=== PATIENT | male | born 1975 | race Caucasian/White ===

== ENCOUNTER 2023-12-02 12:43 | Emergency (ER) | payer OTHER ==
--- NOTE | 2023-12-02 12:47 | ERPHSYRPT ---
- History of Present Illness Time Seen by Provider: 12/02/23 12:47 Historian: patient Exam Limitations: no limitations Physician History: This is an overweight 48-year-old white male patient who for the last 2 days has noticed worsening right flank pain that radiates into his right groin area. Patient has a history of ureterolithiasis in the past. He states this feels the same. Patient has a history of hypertension and diabetes. Patient has also been diagnosed with leukemia and is currently on chemotherapy. Patient took Advil this morning about 4 AM without much relief. He has not noticed any hematuria. He denies chest pain and he denies shortness of breath. The Timing/Duration: day(s) (2), worse (Today) Quality: aching, stabbing Abdominal Pain Onset Location: flank (Right) Pain Radiation: RLQ, groin (Right side) Severity of Pain-Max: moderate Severity of Pain-Current: moderate Modifying Factors: Improves With: nothing Associated Symptoms: denies symptoms Previous symptoms: same symptoms as today, no recent treatment Allergies/Adverse Reactions: Penicillins Allergy (Verified 12/02/23 13:05) Home Medications: Acalabrutinib Maleate [Calquence] 100 mg PO BID 12/02/23 [History] Amlodipine Besylate 10 mg PO DAILY 12/02/23 [History] Cetirizine HCl 10 mg PO DAILY 12/02/23 [History] Empagliflozin [Jardiance] 10 mg PO DAILY 12/02/23 [History] Semaglutide [Ozempic] 1 mg SQ WEEKLY 12/02/23 [History] Travel Risk - International Travel Have you traveled outside of the country in past 3 weeks: No - Emerging Infectious Disease Are you exhibiting symptoms associated with any current EIDs: No - Vaccine Status Hx Covid Vaccintation/Booster/Date Given: No - Review of Systems Constitutional: No Symptoms Eyes: No Symptoms Ears, Nose, & Throat: No Symptoms Respiratory: No Symptoms Cardiac: No Symptoms Abdominal/Gastrointestinal: No Symptoms Genitourinary Symptoms: Flank Pain (Right) Musculoskeletal: No Symptoms Skin: No Symptoms Neurological: No Symptoms Psychological: No Symptoms Endocrine: No Symptoms Hematologic/Lymphatic: No Symptoms Immunological/Allergic: No Symptoms All Other Systems: Reviewed and Negative - Past Medical History Pertinent Past Medical History: Yes - Nursing Vital Signs Nursing Vital Signs: Initial Vital Signs Temperature 98.3 F 12/02/23 12:51 Pulse Rate 81 12/02/23 12:51 Blood Pressure 144/98 12/02/23 12:51 O2 Sat by Pulse Oximetry 97 12/02/23 12:51 Pain Scale Pain Intensity 2 - Physical Exam General Appearance: no apparent distress, alert, anxiety Eye Exam: PERRL/EOMI, eyes nml inspection Ears, Nose, Throat Exam: normal ENT inspection, moist mucous membranes Neck Exam: normal inspection, non-tender, supple, full range of motion Respiratory Exam: normal breath sounds, lungs clear, airway intact, No chest tenderness, No respiratory distress Cardiovascular Exam: regular rate/rhythm, normal heart sounds, normal peripheral pulses Gastrointestinal/Abdomen Exam: soft, normal bowel sounds, No tenderness, No guarding Rectal Exam: not done Back Exam: normal inspection, normal range of motion, CVA tenderness (Right flank), No vertebral tenderness Extremity Exam: normal inspection, normal range of motion, pelvis stable Neurologic Exam: alert, oriented x 3, cooperative, hand pattern marker II-XII nml as tested, normal mood/affect, nml cerebellar function, nml station & gait, sensation nml Skin Exam: normal color, warm, dry Lymphatic Exam: No adenopathy SpO2 Interpretation: normal O2 Delivery: Room Air - Course Nursing assessment & vital signs reviewed: Yes Ordered Tests: Active Orders 24 hr Category Date Time Status IV Insertion STAT Care 12/02/23 13:37 Active ABDOMEN AND PELVIS W/0 CONTRAS [CT] Stat Exams 12/02/23 13:37 Completed AMYLASE Stat Lab 12/02/23 12:55 Received CBC W DIFF Stat Lab 12/02/23 12:55 Completed LIPASE Stat Lab 12/02/23 12:55 Received UA W/RFX UR CULTURE Stat Lab 12/02/23 13:40 Completed Medication Summary Discontinued Medications Generic Name Dose Route Start Last Admin Trade Name Freq PRN Reason Stop Dose Admin Hydromorphone HCl 1 mg 12/02/23 13:37 12/02/23 13:51 Hydromorphone 1 Mg/1ml Inj IV 12/02/23 13:38 1 mg STAT ONE Administration Hydromorphone HCl Confirm 12/02/23 13:44 Hydromorphone 1 Mg/1ml Inj Administered 12/02/23 13:45 Dose 1 mg .ROUTE .STK-MED ONE Sodium Chloride 1,000 mls @ 999 mls/hr 12/02/23 13:37 12/02/23 13:51 Sodium Chloride 0.9% 1000 Ml IV 12/02/23 14:37 999 mls/hr .Q1H1M STA Administration Sodium Chloride Confirm 12/02/23 13:44 Sodium Chloride 0.9% 1000 Ml Administered 12/02/23 13:45 Dose 1,000 mls @ ud .ROUTE .STK-MED ONE Ketorolac Tromethamine 30 mg 12/02/23 13:37 12/02/23 13:51 Ketorolac Tromethamine 30 Mg/Ml Inj IV 12/02/23 13:38 30 mg STAT ONE Administration Ketorolac Tromethamine Confirm 12/02/23 13:43 Ketorolac Tromethamine 30 Mg/Ml Inj Administered 12/02/23 13:44 Dose 30 mg .ROUTE .STK-MED ONE Ondansetron HCl 4 mg 12/02/23 13:37 12/02/23 13:51 Ondansetron Hcl 4 Mg/2 Ml Vial IV 12/02/23 13:38 4 mg STAT ONE Administration Ondansetron HCl Confirm 12/02/23 13:43 Ondansetron Hcl 4 Mg/2 Ml Vial Administered 12/02/23 13:44 Dose 4 mg .ROUTE .STK-MED ONE Lab/Rad Data: Laboratory Result Diagrams 12/02/23 12:55 12/02/23 12:55 Laboratory Results 12/02/23 12/02/23 12/02/23 Range/Units 13:40 12:55 12:55 WBC 12.4 H (4.0-10.5) x10^3/uL RBC 5.48 (4.1-5.6) x10^6/uL Hgb 16.7 (12.5-18.0) g/dL Hct 51.4 H (42-50) % MCV 93.8 (78-100) fL MCH 30.5 (26-32) pg MCHC 32.5 (32-36) g/dL RDW 13.5 (11.5-14.0) % Plt Count 187 (150-450) x10^3/uL MPV 12.1 H (7.5-11.0) fL Gran % 39.3 (36.0-66.0) % Immature Gran % (Auto) 0.5 H (0.00-0.4) % Nucleat RBC Rel Count 0.0 (0.00-0.1) % Eos # (Auto) 0.22 (0-0.5) x10^3/uL Immature Gran # (Auto) 0.06 H (0.00-0.03) x10^3u/L Absolute Lymphs (auto) 6.66 H (1.0-4.6) x10^3/uL Absolute Monos (auto) 0.53 (0.0-1.3) x10^3/uL Absolute Nucleated RBC 0.00 (0.00-0.01) x10^3u/L Lymphocytes % 53.5 H (24.0-44.0) % Monocytes % 4.3 (0.0-12.0) % Eosinophils % 1.8 (0.00-5.0) % Basophils % 0.6 (0.0-0.4) % Absolute Granulocytes 4.90 (1.4-6.9) x10^3/uL Basophils # 0.07 (0-0.4) x10^3/uL Sodium Direct 140 (138-146) mmol/L Potassium 3.6 (3.5-4.9) mmol/L Chloride 104 (98-109) mmol/L Carbon Dioxide 26 (24-29) mmol/L Venous BUN 12 (8-26) mg/dL Creatinine 0.8 (0.6-1.3) mg/dL Glucose 192 H (70-105) mg/dL Ionized Calcium 1.19 (1.12-1.32) mmol/L Urine Color Yellow (Yellow) Urine Appearance Clear (Clear) Urine pH 5.5 (4.6-8.0) Ur Specific [place] >=1.030 A (1.005-1.030) Urine Protein Negative (Negative) Urine Glucose (UA) >=1000 A (Negative) mg/dL Urine Ketones Negative (Negative) Urine Blood Negative (Negative) Urine Nitrite Negative (Negative) Urine Bilirubin Negative (Negative) Urine Urobilinogen 0.2 (0.2) mg/dL Ur Leukocyte Esterase Negative (Negative) U Hyaline Cast (Auto) NONE SEEN (0-2) /LPF Urine Microscopic RBC 0-2 (0-5) /HPF Urine Microscopic WBC 0-2 (0-5) /HPF Ur Epithelial Cells None Seen (None Seen) /HPF Urine Bacteria None Seen (None Seen) /HPF Urine Culture Reflexed NO (NO) Slides for Path Review YES - Progress Progress: improved, pain not gone completely, re-examined Progress Note: 12/02/23 14:07 This patient's medical issue is 1 of moderate complexity. The level of complexity in the workup performed is based on review of the patient's past medical history, review the patient's medication list, review the patient's drug allergy list, history present illness and physical findings on examination. This patient's workup includes placement of intravenous line, infusion of normal saline solution, infusion of Zofran, infusion of Dilaudid, infusion of Toradol, CBC, CMP, amylase, lipase, urinalysis and CT scan of the abdomen pelvis without contrast. 12/02/23 14:21 This patient has a CT scan of the abdomen pelvis without contrast that was interpreted by the radiologist. The similar study was performed on 09/24/2016 and today's study was compared to that study. There is no evidence of renal calculus or evidence for obstructive uropathy. There is new splenomegaly and mesenteric/retroperitoneal lymphadenopathy presumed to be secondary to this patient's known leukemia diagnosis. 12/02/23 14:49 I interpreted the patient's laboratory data results. Patient has a mild leukocy tosis. He does have a history of leukemia and is currently undergoing chemotherapy. The remainder of the laboratory data workup results that have returned do not suggest any acute, emergent medical issue. The laboratory studies that remain will not be back for some time. The analyzer is down. I discussed this with the patient. The patient desires to be discharged to home and we will contact him and let him know what the results are. I believe he is stable for discharge to home and he wants to go home. Counseled pt/family regarding: lab results, diagnosis, need for follow-up, rad results Medical Desision Making - Diagnostic Testing Diagnostic test were ordered, analyzed, and reviewed by me: Yes Radiological Interpretation: Reviewed by me, Teleradiologist Report - Risk of complications The pt has a mod risk of morbidity or mortality based on: Need for prescription drug management - Departure Departure Disposition: Home Clinical Impression: Right flank pain Condition: Stable Critical Care Time: No Referrals: AIDA BROOKE [Primary Care Provider] - Follow up/PCP as directed Additional Instructions: Drink plenty fluids. Take your medication as prescribed. Follow-up with your primary care provider today, 12/02/2023, to make arranges for follow-up appoi ntment the next 3 to 5 days. Prescriptions: Hydrocodone/APAP 5/325 [[place] 5/325 mg] 1 each PO Q8H PRN PRN #8 tablet MDD 3 PRN Reason: Pain
[2023-12-02 13:05] VITALS: TEMP 98.3
[2023-12-02] MEDS ORDERED: TORAdol 30 mg Injection ONE (13:43)
[2023-12-02] MEDS ORDERED: Zofran 4 MG/2 ML VIAL ONE (13:43)
[2023-12-02] MEDS ORDERED: Sodium Chloride 0.9% 1000 ML 1,000 ML ONE (13:44)
[2023-12-02] MEDS ORDERED: Hydromorphone 1 mg/ml Injection ONE (13:44)
[2023-12-02] MEDS: Zofran 4 MG/2 ML VIAL IV ONE (13:51)
[2023-12-02] MEDS: TORAdol 30 mg Injection IV ONE (13:51)
[2023-12-02] MEDS: Hydromorphone 1 mg/ml Injection IV ONE (13:51)
[2023-12-02] MEDS: Sodium Chloride 0.9% 1000 ML 1,000 ML IV STA (13:51)
[2023-12-02 13:55] LABS: Appearance Clear (Clear); Bacteria None Seen /HPF (None Seen); Bilirubin Negative (Negative); Blood Negative (Negative); Epithelial Cells None Seen /HPF (None Seen); Glucose, Urine >=1000 mg/dL (Negative); Hyaline Casts NONE SEEN /LPF (0-2); Ketones Negative (Negative); Leukocyte Esterase Negative (Negative); Nitrite Negative (Negative); Ph 5.5 (4.6-8.0); Protein,Urine Dip Negative (Negative); RBC 0-2 /HPF (0-5); Specific Gravity >=1.030 (1.005-1.030); Urobilinogen 0.2 mg/dL (0.2); WBC 0-2 /HPF (0-5)
[2023-12-02 13:57] LABS: ADD URINE CULTURE? NO (NO)
[2023-12-02 13:57] LABS: BASOPHIL % 0.6 % (0.0-0.4); Basophil (Absolute #) 0.07 x10^3/uL (0-0.4); Eosinophil % 1.8 % (0.00-5.0); Eosinophil (Absolute #) 0.22 x10^3/uL (0-0.5); Hematocrit 51.4 % (42-50); Hemoglobin 16.7 g/dL (12.5-18.0); IMMATURE GRAN # 0.06 x10^3u/L (0.00-0.03); IMMATURE GRAN % 0.5 % (0.00-0.4); Lymphocyte (Absolute #) 6.66 x10^3/uL (1.0-4.6); Lymphocytes % 53.5 % (24.0-44.0); Mean Cell Volume 93.8 fL (78-100); Mean Corpuscular Hemoglobin 30.5 pg (26-32); Mean Corpuscular Hgb Concent. 32.5 g/dL (32-36); Mean Platelet Volume 12.1 fL (7.5-11.0); Monocyte (Absolute #) 0.53 x10^3/uL (0.0-1.3); Monocytes % 4.3 % (0.0-12.0); Neutrophil % 39.3 % (36.0-66.0); Platelet Count 187 x10^3/uL (150-450); Red Blood Count 5.48 x10^6/uL (4.1-5.6); Red Cell Distribution Width 13.5 % (11.5-14.0); White Blood Count 12.4 x10^3/uL (4.0-10.5)
[2023-12-02 14:01] VITALS: RESP 16; O2SAT 96
--- NOTE | 2023-12-02 14:06 | XRAY ---
Indication: Right flank pain. History kidney stone and leukemia. Multiple contiguous axial images obtained through the abdomen and pelvis without contrast using renal stone protocol. Comparison: February 22, 2017 Lung bases clear. Heart not enlarged. No renal calculus or evidence for obstructive uropathy in either system. Noncontrasted stomach and bowel loops appear nonobstructed. Normal appendix. New 17.2 cm splenomegaly and multiple mesenteric/retroperitoneal lymphadenopathy favoring clinically reported leukemia. Largest lymphadenopathy is left mid mesenteric measuring 1.5 x 2.8 cm. No free fluid/air. Remaining liver, gallbladder, pancreas, spleen, adrenal glands, kidneys, ureters, and bladder are unremarkable for noncontrast exam. New minimal aortoiliac calcifications without AAA. 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 No suspicious bony lesions. Impression: 1. Negative renal calculus or evidence for obstructive uropathy. 2. New splenomegaly and mesenteric/retroperitoneal lymphadenopathy presumed related to clinically reported leukemia. 3. Again incidental L5 spondylolysis without listhesis.
[2023-12-02 14:12] LABS: ISTAT K 3.6 mmol/L (3.5-4.9)
[2023-12-02 14:13] LABS: ISTAT CREA 0.8 mg/dL (0.6-1.3); ISTAT iCA 1.19 mmol/L (1.12-1.32)
[2023-12-02 14:31] LABS: Slide Review 1 YES
[2023-12-02 15:01] VITALS: BP 134/97; PULSE 76
[2023-12-02 15:59] LABS: AMYLASE 57 U/L (30-110); LIPASE 71 U/L (23-300)
== END 2023-12-02 15:06 | disposition home or self-care (01) ==
LOC: ED 12:43
DX: R10.9 Unspecified abdominal pain (principal); I10 Essential (primary) hypertension; E11.9 Type 2 diabetes mellitus without complications; Z79.84 Long term (current) use of oral hypoglycemic drugs; Z79.85 Long-term (current) use of injectable non-insulin antidiabetic drugs; Z79.899 Other long term (current) drug therapy; Z28.310 Unvaccinated for COVID-19
CPT/HCPCS: 36000; 36415; 74176; 80047; 81001; 82150; 83690; 85025; 96360; 96374; 96375; 99284; J1170; J1885; J2405